=== PATIENT | male | born 1955 | race Hispanic/Latino ===

== ENCOUNTER → 2019-03-16 | Day surgery (SDC) | payer OTHER ==
[2019-03-12 10:54] LABS: BASOPHILS % 0.5 % (0.0-1.0); EOSINOPHILS # (AUTO) 0.2 (0.0-0.4); EOSINOPHILS % 2.6 % (0.0-6.0); HEMATOCRIT 45.8 % (38.2-49.6); HEMOGLOBIN 15.7 g/dL (14.0-18.0); LYMPHOCYTES # (AUTO) 3.1 (1.0-3.2); LYMPHOCYTES % 36.3 % (18.0-39.1); MEAN CORPUSCULAR HEMOGLOBIN 28.8 pg (28-32); MEAN CORPUSCULAR HGB CONC 34.3 g/dL (31-35); MONOCYTES # (AUTO) 0.8 (0.2-0.8); NEUTROPHILS # (AUTO) 4.4 (2.1-6.9); NEUTROPHILS % 51.3 % (38.7-80.0); PLATELET COUNT 196 x10e3/uL (140-360); RED BLOOD COUNT 5.45 x10e6/uL (4.3-5.7)
[2019-03-12 11:12] LABS: ALANINE AMINOTRANSFERASE 17 IU/L (0-55); ALBUMIN/GLOBULIN RATIO 1.5 (0.8-2.0); ALKALINE PHOSPHATASE 76 IU/L (40-150); ANION GAP 15.7 mmol/L (8-16); BLOOD UREA NITROGEN 12 mg/dL (7-26); BUN/CREATININE RATIO 16 (6-25); CALCIUM 9.2 mg/dL (8.4-10.2); CARBON DIOXIDE 24 mmol/L (22-29); CHLORIDE 98 mmol/L (98-107); CREATININE, SERUM 0.77 mg/dL (0.72-1.25); EST GLOMERULAR FILTRATION RATE > 60 ML/MIN (60-); GLUCOSE 241 mg/dL (74-118); POTASSIUM 4.7 mmol/L (3.5-5.1); SODIUM 133 mmol/L (136-145)
[2019-03-12 11:27] LABS: CHOL/HDL RATIO 3.3 (3.9-4.7)
[~2019-03-16] VITALS: Ht 165.1 cm; Wt 88.5 kg
[2019-03-16] VITALS (9 sets, daily range): BP systolic 138–167; BP diastolic 72–86
[~2019-03-16] MED LIST: ASPIRIN 325 MG TAB ONE; CLOPIDOGREL75 MG PO; DOXYCYCLINE HY100 MG PO; FENTANYL CITRATE/PF 100MCG/2 ML INJ ONE; GABAPENTIN300 MG PO; GLIPIZIDE5 MG PO; HEPARIN SOD (PORCINE) 1000 UNIT/ML 30ML ONE; HEPARIN SOD/SOD CHLORIDE 2,000 ML ONE; IOPAMIDOL 300MG/ML 100 ML INFUS..BTL IV ONE; IOPAMIDOL 370 MG/ML 200 ML INFUS..BTL INJ ONE; LIDOCAINE HCL 2% LOCAL 20 ML VIAL ONE; METFORMIN HCL500 MG PO; METOPROLOL TART25 MG PO; MIDAZOLAM HCL 2 MG/2 ML VIAL ONE; NIFEDIPINE ER30 M1 PO; NITROGLYCERIN/D5W 200 MCG/ML 250 ML ONE; PRASUGREL 10 MG TAB ONE; RISPERIDONE2 MG PO; SERTRALINE HCL100 MG PO; SIMVASTATIN40 MG PO; SODIUM CHLORIDE 0.9% 1000ML 1,000 ML ONE; SODIUM CHLORIDE 0.9% 50ML 50 ML ONE; VASOTEC10 M1 PO; VERAPAMIL HCL 2.5 MG/ML 2 ML VIAL ONE
--- OUTSIDE RECORDS SUMMARY | 2019-03-16 06:10 | XMS REPORT ---
Author Author Admin, [place] Organization [facility] Contact Center Address Unknown Phone Unavailable Allergies, Adverse Reactions, Alerts Allergy Name Reaction Description Start Date Severity Status Provider No Known Allergies Robert Jerry MD Conditions or Problems Problem Name Problem Code Onset Date Status Entry Date Provider Comment Standard Description Annotate ADJUSTMENT DISORDER, W/ DISTURBANCE OF CONDUCT Active Robert Jerry MD Adjustment disorder with disturbance of conduct DEPRESSIVE DISORDER, MAJOR, RECURRENT EPISODE, PARTIAL REMISSION Active Robert Jerry MD Major depressive disorder, recurrent episode, in partial or unspecified remission Tobacco user 305.1 Active Robert Jerry MD Tobacco use disorder Medication List Medication Instructions Start Date Stop Date Generic Name NDC Status Provider Patient Instruction RISPERDAL 0.5 MG ORAL TABLET Take one tablet By Mouth daily RISPERIDONE 40450162757 Active Robert Jerry MD Active ZOLOFT 100 MG ORAL TABLET Take one tablet By Mouth daily SERTRALINE HCL 45300154315 Active Robert Jerry MD Active Vital Signs Date Name Value Unit Range Description blood pressure, diastolic 64 mm[Hg] BP lay blood pressure, systolic 110 mm[Hg] BP sys height E&M 67 [in_us] Bdy height pulse rate E&M 75 /min Heart rate weight E&M 195 [lb_av] Weight Measured blood pressure, diastolic 66 mm[Hg] BP lay blood pressure, systolic 133 mm[Hg] BP sys height E&M 67 [in_us] Bdy height pulse rate E&M 71 /min Heart rate weight E&M 195 [lb_av] Weight Measured Encounters Date Encounter Provider Code Facility 09:04:18 CDT Est Patient Exp Problem - 80009 Robert Jerry MD CPT-63523 [facility] Procedures Code Procedure Name Date Entry Date Standard Description CPT-09027 Diagnostic evaluation with medical - 95865 10:05:05 CDT
--- OUTSIDE RECORDS SUMMARY | 2019-03-16 06:10 | XMS REPORT ---
Author Author [facility] Address Unknown Phone Unavailable Care Team Providers Care Shipping And Receiving Operator Name Role Phone HEYDI DUMONT Unavailable Unavailable Payers Payer Name Policy Type Policy Number Effective Date Expiration Date Problems This patient has no known problems. Allergies, Adverse Reactions, Alerts Allergy Name Allergy Type Status Severity Reaction(s) Onset Date Inactive Date Treating Clinician Comments No Known Allergies DA Active U 2018-08-06 00:00:00 Medications This patient has no known medications. Results Test Description Test Time Test Comments Text Results Atomic Results Result Comments - [facility] LW JNT W/O CONT RT 2018-09-05 09:09:00 FAX: Arlene Carson MD [phone] Dairy: St: DEP Name: ALISHA NANDODAJUAN [facility] : 1955 Age/S: 62/M [address] [place] [address] Blvd Unit #: [id number] Loc: [place] [address] Phys: Arlene Santiago MD Acct: [id number] Dis Date: Status: DEP CLI PHONE #: [phone] Exam Date: 09/04/2018 1605 FAX #: [phone] Reason: T87.89 EVALUATE ABSCESS, OSTEOMYELITIS EXAMS: CPT CODE: [id number] [place] LW JNT [place] [address] - MRI LW JNT W/O CONT RT, 09/04/2018 3:29 PM INDICATION: Evaluate abscess. Osteomyelitis. COMPARISON: None TECHNIQUE: Multi- planar, multi-sequence MR imaging of the right lower extremity was performed using routine protocol without gadolinium-based contrast. AREA IMAGED: Right below-knee amputation stump FINDINGS: . Soft tissues: There is a linear tract of T1 hypointense, T2 hyperintense fluid extending from the skin surface into the subcutaneous tissues. This measures 3 cm in length by 0.6 x 0.3 cm axial. There is a susceptibility artifact likely postsurgical. There appears to be an additional area of T1 hypointensity and T2 hyperintensity in the deep soft tissues posterior to the distal femoral stump. . Bones: Status post below knee amputation. Serpentine area of T1 hypointensity, T2 hyperintensity within the distal femoral shaft at the amputation site likely small bone infarct. Otherwise marrow signals within normal limits. There is no evidence for bony erosion. . Joints: Not applicable . Additional Comments: None IMPRESSION: 1. Status post below knee amputation. Bony stump appears intact. Small area of bone infarct. No evidence for osteomyelitis. 2. Small fluid collection in the subcutaneous tissues extending to the skin. This could represent a small postoperative seroma/hematoma. A small infected collection is also in the differential. Correlate with physical examination findings. 3. Possible additional small fluid collection in the deep soft tissues posterior to the stump. No surrounding soft tissue edema. This is favored represent postoperative seroma/hematoma. Suggest attention on follow-up imaging. SL: PEGGY PAGE 1 Signed Report (CONTINUED) FAX: Arlene Carson MD [phone] Dairy: St: DEP Name: DAJUAN FERRELL [facility] : 1955 Age/S: 62/M [address] [place] [address] Unit #: [id number] Loc: [place] [address] Phys: Arlene Santiago MD Acct: [id number] Dis Date: Status: DEP CLI PHONE #: [phone] Exam Date: 09/04/2018 1605 FAX #: [phone] Reason: T87.89 EVALUATE ABSCESS, OSTEOMYELITIS EXAMS: CPT CODE: [id number] MRI LW JNT W/[place] [address] <Continued> at 0909 Reported and signed by: Chepe Matthews M.D. CC: Arlene Santiago MD Technologist: Imtiaz Tarango RT(R)(CT)(MR) Trnscrd Date/Time/By: 09/05/2018 (908) : By: [email or web address] Orig Print D/T: S: 09/05/2018 (911) PAGE 2 Signed Report MRI FOOT RIGHT WO [place] [address] Patient Name: DAJUAN BRITO MR #: [id number] : 1955 Age/Sex: 61/M Req #: [id number] Adm Physician: HEYDI DUMONT MD Ordered by: HEYDI DUMONT MD Report #: [id number] Location: MED/SURG3 Room/Bed: [facility] [place] Procedure: [id number] MRI/MRI FOOT RIGHT WO Exam Date: 05/06/17 Exam Time: 1010 REPORT STATUS: Signed TECHNIQUE: Magnetic resonance imaging of the RIGHT foot (forefoot) was performed WITHOUT injected contrast. Inhomogeneous fat saturation on the T2 images that partially limits the exam. HISTORY: Cellulitis, soreness between the fourth and fifth toes, redness, lateral side of foot, diabetes COMPARISON: None available. DISCUSSION: Bone: No focal or infiltrative bone marrow replacing abnormality. No acute fracture or osteonecrosis. Joints: No dislocation. No effusion. Mild degenerative changes of the first metatarsophalangeal joint. Soft Tissues: Nonspecific soft tissue edema, without a loculated fluid collection. IMPRESSION: 1. No osteomyelitis. 2. No soft tissue abscess. 3. Nonspecific soft tissue edema, compatible with the provided history of cellulitis. Signed by: Dr. Obi Murillo M.D. on 05/06/2017 11:28 AM Dictated By: OBI MURILLO DO 1128 Transcribed By: MIGUEL ANGEL on 05/06/17 1128 COPY TO: HEYDI DUMONT MD
--- NOTE | 2019-03-31 10:57 | Operative Report ---
DATE OF PROCEDURE: 03/16/2019 SURGEON: Everett Iniguez MD INDICATION: Peripheral arterial disease, claudication of left lower extremity. PROCEDURES PERFORMED: 1. Abdominal aortogram. 2. Left lower extremity angiogram. 3. Atherectomy and angioplasty of left peroneal artery. 4. Secondary thrombectomy of the left peroneal artery. 5. Deployment of right groin Mynx closure device. COMPLICATIONS: None. RECOMMENDATIONS: Dual antiplatelet therapy for life. DESCRIPTION OF PROCEDURE: Access obtained in the right femoral artery. Abdominal aortogram demonstrated widely patent abdominal aorta, common right femoral artery is occluded. Coronary angiography demonstrated stent in the left anterior descending artery, diffuse disease of the right coronary artery, 50% to 70% occluded right posterolateral branch, diffuse 70% to 90% stenosis of the right aligner anterior descending artery, which was 2 mm in size. No options for percutaneous coronary intervention. Left femoral artery 50% stenosis. Anterior and posterior tibial artery was occluded. The left posterior tibioperoneal trunk and peroneal vessels had 90% stenosis. A decision was made to intervene on the peroneal artery. The patient received heparin for anticoagulation. The sheath was exchanged to a 6-Greek sheath, advanced in the right femoral artery left superficial femoral artery. Orbital atherectomy was performed. Large amounts of visible thrombus for which manual secondary thrombectomy was needed. Balloon angioplasty 2.5 mm balloon resulted in excellent one vessel runoff. Right groin repaired using Mynx closure device. The patient was discharged home same day. Everett Iniguez MD KSB/MODL /[id number]
== END | disposition home or self-care (01) ==
LOC: CATH LAB 06:05
PROVIDERS: ATTEND Internal Medicine Interventional Cardiology
DX: I25.10 Atherosclerotic heart disease of native coronary artery without angina pectoris (principal); E11.9 Type 2 diabetes mellitus without complications; Z79.02 Long term (current) use of antithrombotics/antiplatelets; Z79.84 Long term (current) use of oral hypoglycemic drugs; I70.212 Atherosclerosis of native arteries of extremities with intermittent claudication, left leg
CPT/HCPCS: 36415; 37186; 37229; 75625; 75710; 80053; 80061; 85025; 93454; C1724; C1725; C1760; C1769 ×3; C1887 ×2; J1644; J2001; J2250; J3010; J7030; Q9967 ×2; 36247; 36251; 37236

== ENCOUNTER 2019-04-11 19:20 | Observation (INO) | payer OTHER ==
[~2019-04-11] VITALS: Ht 165.1 cm; Wt 83.9 kg
[~2019-04-11 19:20] MED LIST changes: -ASPIRIN 325 MG TAB ONE; -DOXYCYCLINE HY100 MG PO; -FENTANYL CITRATE/PF 100MCG/2 ML INJ ONE; -HEPARIN SOD (PORCINE) 1000 UNIT/ML 30ML ONE; -HEPARIN SOD/SOD CHLORIDE 2,000 ML ONE; -IOPAMIDOL 300MG/ML 100 ML INFUS..BTL IV ONE; -IOPAMIDOL 370 MG/ML 200 ML INFUS..BTL INJ ONE; -LIDOCAINE HCL 2% LOCAL 20 ML VIAL ONE; -METOPROLOL TART25 MG PO; -MIDAZOLAM HCL 2 MG/2 ML VIAL ONE; -NIFEDIPINE ER30 M1 PO; -NITROGLYCERIN/D5W 200 MCG/ML 250 ML ONE; -PRASUGREL 10 MG TAB ONE; -SIMVASTATIN40 MG PO; -SODIUM CHLORIDE 0.9% 1000ML 1,000 ML ONE; -SODIUM CHLORIDE 0.9% 50ML 50 ML ONE; -VASOTEC10 M1 PO; -VERAPAMIL HCL 2.5 MG/ML 2 ML VIAL ONE
[2019-04-11] MEDS ORDERED: SODIUM CHLORIDE 0.9% 1000ML 1,000 ML IV STA (19:56)
[2019-04-11 20:40] LABS: BASOPHILS % 0.2 % (0.0-1.0); EOSINOPHILS # (AUTO) 0.1 (0.0-0.4); EOSINOPHILS % 0.4 % (0.0-6.0); HEMATOCRIT 47.1 % (38.2-49.6); HEMOGLOBIN 16.5 g/dL (14.0-18.0); LYMPHOCYTES # (AUTO) 1.7 (1.0-3.2); LYMPHOCYTES % 9.6 % (18.0-39.1); MEAN CORPUSCULAR HEMOGLOBIN 29.2 pg (28-32); MEAN CORPUSCULAR VOLUME 83.2 fL (81-99); MONOCYTES # (AUTO) 1.3 (0.2-0.8); MONOCYTES % 7.6 % (4.4-11.3); NEUTROPHILS # (AUTO) 14.4 (2.1-6.9); NEUTROPHILS % 81.6 % (38.7-80.0); PLATELET COUNT 203 x10e3/uL (140-360); RED BLOOD COUNT 5.66 x10e6/uL (4.3-5.7); RED CELL DISTRIBUTION WIDTH 13.4 % (11.7-14.4)
[2019-04-11 20:51] LABS: ANION GAP 17.3 mmol/L (8-16); BLOOD UREA NITROGEN 18 mg/dL (7-26); BUN/CREATININE RATIO 20 (6-25); CARBON DIOXIDE 20 mmol/L (22-29); CHLORIDE 102 mmol/L (98-107); CREATINE KINASE 3300 IU/L (30-200); CREATININE, SERUM 0.89 mg/dL (0.72-1.25); EST GLOMERULAR FILTRATION RATE > 60 ML/MIN (60-); GLUCOSE 367 mg/dL (74-118); POTASSIUM 4.3 mmol/L (3.5-5.1); SODIUM 135 mmol/L (136-145)
--- NOTE | 2019-04-11 21:51 | Diagnostic Imaging Report ---
LEFT HAND RADIOGRAPHS 3 VIEWS, LEFT FOREARM RADIOGRAPHS 2 VIEWS, LEFT HUMERUS RADIOGRAPH 3 VIEWS HISTORY: Pain. COMPARISON: None available. FINDINGS: Bones: No acute displaced fracture. Osseous alignment is within normal limits. Joints: The joint spaces are well-maintained. Soft tissues: Vascular calcifications. Mild soft tissue swelling dorsal to the elbow. IMPRESSION: No acute radiographic osseous abnormality. Mild nonspecific soft tissue swelling dorsal to the elbow. Signed by: Boyd Rosado DO on 04/11/2019 9:48 PM
[2019-04-12 01:07] LABS: BASOPHILS % 0.3 % (0.0-1.0); EOSINOPHILS # (AUTO) 0.2 (0.0-0.4); EOSINOPHILS % 1.1 % (0.0-6.0); HEMATOCRIT 45.1 % (38.2-49.6); HEMOGLOBIN 15.7 g/dL (14.0-18.0); LYMPHOCYTES # (AUTO) 2.4 (1.0-3.2); LYMPHOCYTES % 17.2 % (18.0-39.1); MEAN CORPUSCULAR HGB CONC 34.8 g/dL (31-35); MEAN CORPUSCULAR VOLUME 83.2 fL (81-99); MONOCYTES # (AUTO) 1.4 (0.2-0.8); PLATELET COUNT 194 x10e3/uL (140-360); RED BLOOD COUNT 5.42 x10e6/uL (4.3-5.7); RED CELL DISTRIBUTION WIDTH 13.4 % (11.7-14.4)
[2019-04-12 01:38] LABS: ANION GAP 17.9 mmol/L (8-16); BLOOD UREA NITROGEN 16 mg/dL (7-26); BUN/CREATININE RATIO 20 (6-25); CALCIUM 8.9 mg/dL (8.4-10.2); CARBON DIOXIDE 19 mmol/L (22-29); CHLORIDE 106 mmol/L (98-107); CREATININE, SERUM 0.79 mg/dL (0.72-1.25); EST GLOMERULAR FILTRATION RATE > 60 ML/MIN (60-); GLUCOSE 250 mg/dL (74-118); POTASSIUM 3.9 mmol/L (3.5-5.1); SODIUM 139 mmol/L (136-145)
[2019-04-12 01:50] LABS: CREATINE KINASE 3505 IU/L (30-200)
[2019-04-12] MEDS ORDERED: DEXTROSE 50% SYRINGE 50 ML IV PRN (02:15)
[2019-04-12] MEDS: SODIUM CHLORIDE 0.9% 1000ML 1,000 ML IV SCH ×3 (03:16→18:15)
--- NOTE | 2019-04-12 04:37 | NUR ---
walking rounds with rhiannon huerta
[2019-04-12] MEDS ORDERED: METOPROLOL TARTRATE 25 MG TAB ONE (05:54)
[2019-04-12] MEDS: METOPROLOL TARTRATE 25 MG TAB PO SCH ×2 (06:00→16:51)
[2019-04-12] MEDS ORDERED: METOPROLOL SUCCINATE 25 MG TAB XL PO ONE (06:00)
--- NOTE | 2019-04-12 07:22 | NUR ---
report to domitila huerta
[2019-04-12] MEDS: INSULIN REGULAR, HUMAN 100 UNIT/1 ML 3ML VIAL SQ SCH ×4 (08:08→21:38)
[2019-04-12 08:49] LABS: CREATINE KINASE MB 16.7 ng/mL (0-5.0)
--- NOTE | 2019-04-12 09:07 | NUR ---
H&P cc: left arm swelling and pain HPI: 63yoM, PCP , tried to reach for a cell phone, but left arm got stuck in the groove of the recliner for 5 hours. He developed Acute rhabdomyolysis. PAST MEDICAL HISTORY: Diabetes mellitus, type 2, hypertension, and cigarette abuse, DFU PAST SURGICAL HISTORY: Scalp due to trauma, liver due to fluid collection. ALLERGIES: PER ELECTRONIC MEDICAL RECORDS. FAMILY HISTORY: Diabetes mellitus. SOCIAL HISTORY: The patient is . He has 3 children. No alcohol or illicits. He smokes 2 packs of cigarettes per day. MEDICATIONS: Per electronic medical record. REVIEW OF SYSTEMS: no cp/sob/f/c/s/N/V/D/GARNICA/vision changes/back pain/leg pain/skin rash PHYSICAL EXAMINATION VITAL SIGNS: Have been reviewed. GENERAL: A tired-appearing man resting in bed. HEENT: Anicteric. He has left eye ptosis. CARDIOVASCULAR: Normal S1 and S2. LUNGS: Moderate breath sounds. ABDOMEN: Soft, nontender and nondistended. EXTREMITIES: Left arm edematous and tender; Right foreleg with BKA,stump site with small oozing in center where dressing is located; no erythema/odor at site; SKIN: Dry. PSYCHIATRIC: Flat affect. NEUROLOGICAL: The patient is alert and awake. D LABS: Reviewed. MEDICATIONS: Reviewed. ASSESSMENT AND PLAN: This is a 61-year-old man with: Acute rhabdomyolysis DM2 Obesity BMI 32.4 HTN DM-neuropathy Mood d/o Nicotine dependence PLAN IVF hba1c/lipids follow CPK ADA diet Nicotine patch pepcid Dispo: Jose Kothari MD, PhD.
[2019-04-12 09:28] LABS: CHOL/HDL RATIO 4.1 (3.9-4.7)
[2019-04-12 14:39] VITALS: BP 188/94
[2019-04-12 15:01] VITALS: BP 188/94
[2019-04-12] MEDS ORDERED: GABAPENTIN300 MG PO (15:04)
[2019-04-12 15:58] VITALS: BP 184/85
[2019-04-12] MEDS: GABAPENTIN 100 MG CAP PO SCH (16:51)
[2019-04-12] MEDS ORDERED: NIFEDIPINE CR 30 MG TAB PO ONE (17:00)
[2019-04-12] MEDS ORDERED: DOXYCYCLINE HY100 MG PO (17:10)
[2019-04-12] MEDS ORDERED: SIMVASTATIN40 MG PO (17:10)
[2019-04-12] MEDS ORDERED: METOPROLOL TART25 MG PO (17:10)
[2019-04-12] MEDS ORDERED: VASOTEC10 M1 PO (17:10)
[2019-04-12 18:30] LABS: CREATINE KINASE MB 8.2 ng/mL (0-5.0)
--- NOTE | 2019-04-12 18:55 | NUR ---
RECEIVED REPORT FROM DAY NURSE. PATIENT IS RESTING COMFORTABLY IN BED. BED IS IN LOWEST POSITION AND CALL POSADA IS WITHIN REACH. WILL CONTINUE TO MONITOR PATIENT.
[2019-04-12 20:00] VITALS: BP 156/74
[2019-04-12 20:14] VITALS: BP 156/74
--- NOTE | 2019-04-12 22:00 | NUR ---
PATIENT'S IV HAS INFILTRATED. AFTER HEALTH AND SAFETY INSTRUCTOR EXPLAINED TO PATIENT THE IMPORTANCE OF RECEIVING iv FLUIDS PATIENT AGREED TO HAVE ANOTHER IV STARTED. A 20 GAUGE IV HAS BEEN STARTED IN PATIENTS RIGHT FOREARM. IV IS PATENT. PATIENT TOLERATED PROCEDURE WELL.
--- NOTE | 2019-04-12 22:30 | NUR ---
PATIENTS NEW 20 GAUGE IV HAS INFILTRATED.PATIENT HAS DECLINED TO GET A NEW IV STARTED. STRAP FOLDING MACHINE OPERATOR HAS BEEN CALLED AND HAS EXPLAINED TO THE PATIENT THE IMPORTANCE OF AN IV IN ORDER TO RECEIVE ALL MEDICATIONS. PATIENT STILL INSISTS ON NOT GETTING STUCK ANYMORE. VOICE MESSAGE LEFT ON MD'S PHONE. AWAITING CALL BACK FROM MD.
--- NOTE | 2019-04-12 23:00 | NUR ---
SPOKE WITH PATIENTS SON REGARDING IV ACCESS. PATIENT'S SON SPOKE WITH PATIENT AND CONVINCED HIM TO GET AN IV. PATIENT NOW HAS A 20GAUGE IN THE RIGHT AC. IV IS PATENT AND FLUID IS FLOWING. WILL CONTINUE TO MONITOR PATIENT'S INFUSION PROCESS.
[2019-04-12 23:49] VITALS: BP 168/77
[2019-04-13] VITALS (8 sets, daily range): BP systolic 141–169; BP diastolic 73–79
[2019-04-13] MEDS: SODIUM CHLORIDE 0.9% 1000ML 1,000 ML IV SCH ×2 (02:15→13:07)
--- NOTE | 2019-04-13 06:44 | NUR ---
IM- Progress note O/N; no events REVIEW OF SYSTEMS: no cp/sob/f/c/s/N/V/D/GARNICA/vision changes/back pain/leg pain/skin rash PHYSICAL EXAMINATION VITAL SIGNS: Have been reviewed. GENERAL: A tired-appearing man resting in bed. HEENT: Anicteric. He has left eye ptosis. CARDIOVASCULAR: Normal S1 and S2. LUNGS: Moderate breath sounds. ABDOMEN: Soft, nontender and nondistended. EXTREMITIES: Left arm edematous and tender; Right foreleg with BKA,stump site with small oozing in center where dressing is located; no erythema/odor at site; SKIN: Dry. PSYCHIATRIC: Flat affect. NEUROLOGICAL: The patient is alert and awake. D LABS: Reviewed. MEDICATIONS: Reviewed. ASSESSMENT AND PLAN: This is a 61-year-old man with: Acute rhabdomyolysis DM2 Obesity BMI 32.4 HTN DM-neuropathy Mood d/o Nicotine dependence PLAN IVF hba1c/lipids follow CPK ADA diet Nicotine patch pepcid Dispo: 04/13 hba1c/LDL 10.5/36; start insulin; increase metoprolol; improving; follow CPK Jose Kothari MD, PhD.
[2019-04-13 06:56] LABS: BASOPHILS % 0.3 % (0.0-1.0); EOSINOPHILS # (AUTO) 0.2 (0.0-0.4); EOSINOPHILS % 1.8 % (0.0-6.0); HEMATOCRIT 45.9 % (38.2-49.6); HEMOGLOBIN 15.7 g/dL (14.0-18.0); LYMPHOCYTES # (AUTO) 2.5 (1.0-3.2); LYMPHOCYTES % 22.9 % (18.0-39.1); MEAN CORPUSCULAR HEMOGLOBIN 28.9 pg (28-32); MEAN CORPUSCULAR HGB CONC 34.2 g/dL (31-35); MEAN CORPUSCULAR VOLUME 84.5 fL (81-99); MONOCYTES # (AUTO) 1.2 (0.2-0.8); MONOCYTES % 10.8 % (4.4-11.3); NEUTROPHILS # (AUTO) 6.9 (2.1-6.9); NEUTROPHILS % 63.9 % (38.7-80.0); PLATELET COUNT 181 x10e3/uL (140-360); RED BLOOD COUNT 5.43 x10e6/uL (4.3-5.7); RED CELL DISTRIBUTION WIDTH 13.6 % (11.7-14.4)
--- NOTE | 2019-04-13 06:57 | NUR ---
REPORT GIVEN TO DAY NURSE. PATIENT IS RESTING COMFORTABLY IN BED. BED IS IN LOWEST POSITION AND CALL LIGHT IS WITHIN REACH.
[2019-04-13] MEDS: GABAPENTIN 100 MG CAP PO SCH ×2 (08:10→17:00)
[2019-04-13] MEDS: NIFEDIPINE CR 30 MG TAB PO SCH ×2 (08:10→20:26)
[2019-04-13] MEDS: METOPROLOL TARTRATE 25 MG TAB PO SCH ×2 (08:10→17:00)
[2019-04-13] MEDS: INSULIN REGULAR, HUMAN 100 UNIT/1 ML 3ML VIAL SQ SCH ×4 (08:10→20:27)
[2019-04-13] MEDS ORDERED: SERTRALINE HCL 100 MG TAB PO SCH (09:00)
[2019-04-13] MEDS ORDERED: SERTRALINE HCL 50 MG TAB PO SCH (09:00)
[2019-04-13] MEDS ORDERED: NICOTINE 21 MG/EA PATCH TOP SCH (09:00)
[2019-04-13] MEDS ORDERED: CLOPIDOGREL BISULFATE 75 MG TAB PO SCH (09:00)
--- NOTE | 2019-04-13 19:31 | NUR ---
PT IS RESTING IN BED. RESPIRATION IS EVEN AND UNLABORED, NO DISTRESS NOTED. BED IN THE LOWEST POSITION, LOCKED, AND CALL LIGHT WITHIN REACH. WILL CONTINUE TO MONITOR.
[2019-04-13] MEDS ORDERED: INSULIN GLARGINE 100 UNITS/ML VIAL SQ SCH (21:00)
[2019-04-14] MEDS: SODIUM CHLORIDE 0.9% 1000ML 1,000 ML IV SCH ×2 (02:15→03:11)
[2019-04-14 04:51] VITALS: BP 142/69
[2019-04-14 05:36] LABS: BASOPHILS # (AUTO) 0.1 (0.0-0.1); BASOPHILS % 0.5 % (0.0-1.0); EOSINOPHILS # (AUTO) 0.3 (0.0-0.4); HEMATOCRIT 46.1 % (38.2-49.6); HEMOGLOBIN 15.7 g/dL (14.0-18.0); LYMPHOCYTES # (AUTO) 2.4 (1.0-3.2); LYMPHOCYTES % 23.5 % (18.0-39.1); MEAN CORPUSCULAR HEMOGLOBIN 28.8 pg (28-32); MEAN CORPUSCULAR HGB CONC 34.1 g/dL (31-35); MEAN CORPUSCULAR VOLUME 84.6 fL (81-99); MONOCYTES # (AUTO) 1.2 (0.2-0.8); MONOCYTES % 11.6 % (4.4-11.3); NEUTROPHILS # (AUTO) 6.2 (2.1-6.9); NEUTROPHILS % 60.8 % (38.7-80.0); PLATELET COUNT 212 x10e3/uL (140-360); RED BLOOD COUNT 5.45 x10e6/uL (4.3-5.7); RED CELL DISTRIBUTION WIDTH 13.6 % (11.7-14.4)
[2019-04-14 06:19] LABS: ANION GAP 13.2 mmol/L (8-16); BLOOD UREA NITROGEN 12 mg/dL (7-26); BUN/CREATININE RATIO 15 (6-25); CARBON DIOXIDE 24 mmol/L (22-29); CHLORIDE 101 mmol/L (98-107); CREATININE, SERUM 0.81 mg/dL (0.72-1.25); EST GLOMERULAR FILTRATION RATE > 60 ML/MIN (60-); GLUCOSE 242 mg/dL (74-118); POTASSIUM 4.2 mmol/L (3.5-5.1); SODIUM 134 mmol/L (136-145)
[2019-04-14] MEDS ORDERED: NIFEDIPINE ER30 M1 PO (06:20)
--- NOTE | 2019-04-14 06:22 | NUR ---
D/C SUmmary Principal Dx: Acute rhabdomyolysis Secondary Dx: DM2 Obesity BMI 32.4 HTN DM-neuropathy Mood d/o Nicotine dependence PLAN IVF hba1c/lipids follow CPK ADA diet Nicotine patch pepcid Dispo: 04/13 hba1c/LDL 10.536; start insulin; increase metoprolol; improving; follow CPK d/c home f/u PCP 1 week Increase water intake d/c>35mins stable Jose Kothari MD, PhD.
--- NOTE | 2019-04-14 07:27 | NUR ---
Dr Kothari notified of creatinine kinase. ordered to D/C home.
[2019-04-14 08:36] VITALS: BP 179/83
[2019-04-14] MEDS ORDERED: METOPROLOL TARTRATE 25 MG TAB PO SCH (09:00)
[2019-04-14] MEDS ORDERED: METOPROLOL TARTRATE 50 MG TAB PO SCH (09:00)
== END 2019-04-14 08:16 | disposition home or self-care (01) ==
LOC: ER 19:20 → ERHOLD 04-12 06:14 → IMCU 04-12 14:01
PROVIDERS: ADMIT Internal Medicine; ATTEND Internal Medicine
DX: M62.82 Rhabdomyolysis (principal); E11.42 Type 2 diabetes mellitus with diabetic polyneuropathy; E66.9 Obesity, unspecified; Z68.32 Body mass index [BMI] 32.0-32.9, adult; I10 Essential (primary) hypertension; F39 Unspecified mood [affective] disorder; F17.210 Nicotine dependence, cigarettes, uncomplicated; Z89.511 Acquired absence of right leg below knee; Z79.84 Long term (current) use of oral hypoglycemic drugs
CPT/HCPCS: 36415 ×4; 73060; 73090; 73130; 80048 ×3; 80061; 82550 ×4; 82553 ×2; 82948 ×3; 83036; 84484 ×2; 85025 ×4; 93005; 99284; G0378 ×3; J1815; J1817; J7030 ×4